=== PATIENT | male | born 1990 | race African-American/Black ===

== ENCOUNTER 2020-08-31 19:49 | Emergency (ER) | payer SELFPAY ==
[~2020-08-31] VITALS: Ht 182.9 cm; Wt 86.0 kg
[2020-08-31] MEDS: ACETAMINOPHEN 325MG TABLET PO STA (21:32)
[2020-08-31] MEDS: KETOROLAC 30MG/ML VIAL IV STA (21:32)
[2020-08-31 21:45] LABS: BASOPHILS % 0.9 % (0.0-2.0); EOSINOPHILS % 2.6 % (0.0-5.0); HEMOGLOBIN. 13.9 g/dL (14.0-18.0); LYMPHOCYTES % 8.5 % (20.0-50.0); MEAN CORPUSCULAR HEMOGLOBIN 28.9 pg (28.0-32.0); MEAN CORPUSCULAR VOLUME 85.6 fL (80.0-94.0); MEAN PLATELET VOLUME 9.4 fl (7.4-10.4); PLATELET 220 x1000/uL (130-400); RED BLOOD CELL COUNT 4.79 mill/uL (4.7-6.1); RED CELL DISTRIBUTION WIDTH 13.6 % (11.6-14.6)
[2020-08-31 21:53] LABS: CHLORIDE 107 mEq/L (98-107)
[2020-09-01 00:07] VITALS: BP 130/81
[2020-09-01] MEDS: LIDOCAINE HCL 1% 20ML VIAL (Pyxis) INJ INFIL ONE (00:07)
[2020-09-01] MEDS: CEFTRIAXONE SODIUM 250 MG/VIAL IM ONE (00:07)
[2020-09-03 04:10] LABS: NEISSERIA GONORRHOEAE NAA Negative (Negative)
== END 2020-09-01 00:12 | disposition home or self-care (01) ==
LOC: ER 19:49
DX: A55 Chlamydial lymphogranuloma (venereum) (principal); Z20.2 Contact with and (suspected) exposure to infections with a predominantly sexual mode of transmission; F41.8 Other specified anxiety disorders
CPT/HCPCS: 36415; 80053; 83605; 85025; 87040; 87491; 87591; 93005; 96372; 96374; 99284; J0696; J1885; J3490